=== PATIENT | male | born 1955 | race Caucasian/White ===

== ENCOUNTER 2020-06-28 15:30 | Emergency (ER) | payer MEDICARE, SELFPAY ==
[2020-06-28 15:32] VITALS: BP 135/80; PULSE 75; RESP 18; TEMP 35.8; O2SAT 97; BMI 28.8
--- NOTE | 2020-06-28 15:43 | ECG_ITS ---
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 Measurements Intervals [place] Rate: 74 P: 50 WI: 200 QRS: 26 QRSD: 77 T: 5 QT: 388 QTc: 432 Interpretive Statements SINUS RHYTHM WITH OCCASIONAL SUPRAVENTRICULAR PREMATURE COMPLEXES No previous ECG available for comparison Electronically Signed On 06-28-2020 18:51:17 CDT by Jonathan Novak M.D. [id number]
--- NOTE | 2020-06-28 15:43 | CT_ITS ---
WS: [id number] CT HEAD NONCONTRAST HISTORY: Symptoms of Acute Stroke TECHNIQUE: Contiguous axial imaging performed through the brain in 2.5 mm imaging. Bone and soft tiss ue windows. Sagittal and coronal reformats reviewed. All CT scans at [facility] use at ast one of these dose optimization techniques: automated exposure control; mA and/or kV adjustment pe r patient size (includes targeted exams where dose is matched to clinical indication); or iterative r econstruction. DLP: 797.96 mGy.cm COMPARISON: None available. No acute intracranial hemorrhage, midline shift or mass effect. Mild atrophy and chronic ischemic disease. No prior infarct. Ventricles: Normal size with no hydrocephalus. No inferior displacement of cerebellar tonsils. Paranasal sinuses: As visualized are clear. Mastoid air cells: Well pneumatized. Calvarium and scalp: Skull is intact with no soft tissue edema or swelling. CT/CT head wo con* [id number] IMPRESSION: No acute intracranial hemorrhage or edema. Mild chronic microvascular ischemic disease.
--- NOTE | 2020-06-28 15:43 | ED_ITS ---
HPI - Neuro Symptoms/Deficit General: Chief Complaint: Neuro Symptoms/Deficit Stated Complaint: headache;left arm numbness Time Seen by Provider: 06/28/20 15:33 History of Present Illness: HPI Narrative: 64-year-old male comes in with very vague complaints earlier today he had some left hand left arm and left side of his face numbness and tingling it resolved he also had a little bit of visual variation which she describes at times is almost like double vision that also has resolved he had a slight headache with that is well all of the symptoms have for the most part resolved today he has had recurrent vision problems in the past he seen the eye doctor for this been ongoing for a few months he denies any chest pain or shortness of breath. Denies any fever sweats or chills no nausea vomiting or diarrhea. He denies any vision problems now denies any speech or swallowing or gait problems now. Onset (ago): hour(s) Timing confirmed by: spouse Location: speech and left arm Severity: mild Quality: weak, numb and tingling Relieving factors: none Exacerbating factors: none Context: gradual onset On Anticoagulants: No Associated symptoms: Deny chest pain, cough, diaphoresis, fevers/chills, headache(s), anorexia, malaise, nausea, seizures, short of breath, syncope, tingling, vertigo, vomiting, weakness or other Treatments Prior to Arrival: none Review of Systems Const: Denies: malaise or diaphoresis ENMT: Denies: throat pain, ear or mastoid pain, nasal discharge or nasal congestion Card: Denies: chest pain or syncope Resp: Denies: dyspnea, productive cough or non-productive cough GI: Denies: nausea or vomiting : Denies: flank pain, dysuria, urinary frequency or urinary urgency Skin/Breast: Denies: rash or pruritus Neuro: Denies: headache(s) or vertigo NIH stroke score NIHSS: Level Of Consciousness - 1a: 0 Level Of Consciousness Questions - 1b: Both Correct Level Of Consciousness Commands - 1c: Both Correct Best Gaze - 2: Normal Visual Egan - 3: No Visual Loss Facial Palsy - 4: Iona l Motor Arm Right - 5: No Drift Motor Arm Left - 5: No Drift Motor Leg Right - 6: No Drift Motor Leg Left - 6: No Drift Limb Ataxia - 7: Absent Sensory - 8: Normal Best Language - 9: No Aphasia Dysarthia - 10: Normal Extinction And Inattention - 11: 0 Score: Total Score: 0 Physical Exam Const: COMMON NORMALS: no acute distress GENERAL APPEARANCE: cooperative and comfortable ORIENTATION/CONSCIOUSNESS: Yes awake, Yes oriented to person, Yes oriented to place and Yes oriented to time HENMT: COMMON NORMALS: normocephalic, atraumatic, hearing grossly normal bilaterally, external ears normal, EAC's normal, TM's normal bilaterally, Normal nasal mucous membranes and turbinates present, moist oral mucous membranes and oropharynx normal HEAD & SCALP: normocephalic and atraumatic NOSE: Normal nasal mucous membranes and turbinates present EXTERNAL EAR: Yes external ears normal EXTERNAL AUDITORY CANAL: EAC's normal TYMPANIC MEMBRANE: TM's normal bilaterally Eye: COMMON NORMALS: Equal, round and reactive pupils present, EOMs intact bilaterally, conjunctivae normal and no scleral icterus CONJUNCTIVA: Yes conjunctivae normal PUPIL: Yes Equal, round and reactive pupils present Neck/C-Spine: COMMON NORMALS: full ROM, no lymphadenopathy, supple and no JVD Lymph: LYMPHATIC: no lymphadenopathy noted and no lymphedema noted Resp: COMMON NORMALS: normal respiratory effort, No retractions, No use of accessory muscles and clear to auscultation bilaterally AUSCULTATION: clear to auscultation bilaterally Cardio: COMMON NORMALS: no JVD, regular rate, regular rhythm and No murmurs present (Cardio) RATE: regular rate RHYTHM: regular rhythm GI: COMMON NORMALS: Soft to palpation and No hepatosplenomegaly present AUSCULTATION: Yes normoactive bowel sounds PALPATION: Yes Soft to palpation, No Tenderness to palpation present (GI), No Guarding due to palpation present (GI) and Yes No hepatosplenomegaly present Extremity: COMMON NORMALS: normal to inspection, capillary refill normal, no clubbing, cyanosis or edema, no calf tenderness and no pedal edema Neuro: SENSORIUM/ORIENTATION: Yes oriented to person, Yes oriented to place and Yes oriented to time Skin: COMMON NORMALS: no rashes or lesions noted GENERAL SKIN EXAM: no rashes or lesions noted Course Vital Signs: Vital signs: Vital Signs Temperature 96.5 F L 06/28/20 15:32 Pulse Rate 60 06/28/20 17:00 Respiratory Rate 18 06/28/20 17:00 Blood Pressure 124/79 06/28/20 17:00 Pulse Oximetry 96 06/28/20 17:00 MDM - Neuro Symptoms/Deficit MDM Narrative: Medical decision making narrative: Patient has had symptoms off and on he has no symptoms at this time is not been using any platelet therapy. We will go ahead and start on aspirin daily. If has any worsening or change recheck. Lab Data: Labs: Lab Results 06/28/20 06/28/20 06/28/20 Range/Units 16:02 16:02 16:02 WBC 7.9 (4.0-10.0) 10^3/ uL RBC 4.46 (4.1-5.3) 10^6/u L Hgb 12.2 (11.7-16.6) g/dL Hct 39.2 L (42.0-52.0) % MCV 87.9 (80-94) fL MCH 27.4 L (28.0-34.0) pg MCHC 31.1 (30.0-36.0) g/dL RDW 15.9 H (12.1-15.1) % Plt Count 386 (130-400) 10^3/c mm MPV 9.1 (7.4-10.4) fL Neut % (Auto) 48.0 % Lymph % (Auto) 16.6 % [place] % (Auto) 7.4 % Eos % (Auto) 26.9 % Baso % (Auto) 0.8 % Neut # (Auto) 3.80 (1.8-7.7) 10^3/u L Lymph # (Auto) 1.3 (0.8-4.8) 10^3/u L [place] # (Auto) 0.6 (0.2-0.9) 10^3/u L Eos # (Auto) 2.1 H (0.0-0.8) 10^3/u L Baso # (Auto) 0.1 (0.0-0.1) 10^3/u L Nucleated RBC % (a uto) 0 % Nucleated RBCs # 0.0 /100WBC PT 12.50 (12.1-14.9) SECO NDS INR 0.91 (0.8-1.2) APTT 32.3 (23.9-36.7) SECO NDS Sodium 140 (136-145) mmol/L Potassium 4.5 (3.5-5.1) mmol/L Chloride 105 (98-107) mmol/L Carbon Dioxide 25 (22-29) mmol/L Anion Gap 14.5 (5-19) BUN 15 (8-23) mg/dL Creatinine 1.6 H (0.7-1.2) mg/dL GFR Calculation 43.5 L (90-130) mL/min Glucose 99 (65-115) mg/dL Calculated Osmolal ity 286 (285-295) mOsm/k g Calcium 9.3 (8.5-10.5) mg/dL Total Bilirubin 0.2 (0.15-1.2) mg/dL AST 13 (0-40) U/L ALT 9 (0-41) U/L Alkaline Phosphata se 112 (40-130) IU/L Total Protein 7.4 (6.6-8.7) g/dL Albumin 4.3 (3.5-5.2) g/dL Globulin 3.1 (1.3-4.6) g/dL Discharge Plan Discharge Patient Disposition: Home Clinical Impression: Transient cerebral ischemia Condition: Stable Prescriptions: New Aspirin Childrens 81 mg tablet,chewable 81 mg PO DAILY Qty: 90 RF: 0 No Action cyclobenzaprine 10 mg tablet 10 mg PO DAILY RF: 0 latanoprost 0.005 % drops See Rx Instructions .ROUTE .COMPLEX RF: 0 sertraline 100 mg tablet 150 mg PO DAILY RF: 0 desloratadine 5 mg tablet 5 mg PO DAILY RF: 0 erythromycin 5 mg/gram (0.5 %) ointment See Rx Instructions .ROUTE .COMPLEX RF: 0 Tylenol 325 mg Tablet 325 mg PO QID PRN (Reason: pain/fever) RF: 0 naproxen 375 mg Tablet 375 mg PO BID PRN (Reason: Pain) RF: 0 Mckenzie-Faith Plus Allergy 25 mg Tablet 25 mg PO Q6H PRN (Reason: Cold Symptoms) RF: 0 Discharge Orders: Discharge Order (Routine); Ordered 06/28/20 Ordered By: Jose Long Referrals: Lee Dorado [Primary Care Provider] - Activity Restrictions/Additional Instructions: Case management will call to set up MRI of the head carotid and echo to further evaluate. Continue to take baby aspirin daily until reviewed with your primary care physician. Discharge Date/Time: 06/28/20 17:00 Coding Level of Care Code ED Vp [employer] for Chg Fwd Exam Comprehensive
[2020-06-28 16:18] LABS: Basophils # 0.1 10^3/uL (0.0-0.1); Basophils % 0.8 %; Eosinophils # 2.1 10^3/uL (0.0-0.8); Eosinophils % 26.9 %; Hematocrit 39.2 % (42.0-52.0); Hemoglobin 12.2 g/dL (11.7-16.6); Lymphocytes # 1.3 10^3/uL (0.8-4.8); Lymphocytes % 16.6 %; Mean Corpuscular HGB Conc 31.1 g/dL (30.0-36.0); Mean Corpuscular Hemoglobin 27.4 pg (28.0-34.0); Mean Corpuscular Volume 87.9 fL (80-94); Mean Platelet Volume 9.1 fL (7.4-10.4); Monocytes # 0.6 10^3/uL (0.2-0.9); Monocytes % 7.4 %; Nucleated Red Blood Cells % 0 %; Platelet Count 386 10^3/cmm (130-400); Red Blood Count 4.46 10^6/uL (4.1-5.3); Red Cell Distribution Width 15.9 % (12.1-15.1); White Blood Count 7.9 10^3/uL (4.0-10.0)
[2020-06-28 16:31] LABS: INR 0.91 (0.8-1.2)
[2020-06-28 16:32] LABS: Partial Thromboplastin Time 32.3 SECONDS (23.9-36.7)
[2020-06-28 16:41] LABS: Alanine Aminotransferase 9 U/L (0-41); Albumin Level 4.3 g/dL (3.5-5.2); Alkaline Phosphatase 112 IU/L (40-130); Anion Gap 14.5 (5-19); Aspartate Amino Transferase 13 U/L (0-40); Blood Urea Nitrogen 15 mg/dL (8-23); Calcium 9.3 mg/dL (8.5-10.5); Carbon Dioxide 25 mmol/L (22-29); Chloride 105 mmol/L (98-107); Globulin 3.1 g/dL (1.3-4.6); Glomerular Filtration Rate 43.5 mL/min (90-130); Glucose 99 mg/dL (65-115); Osmolality Calculated 286 mOsm/kg (285-295); Potassium 4.5 mmol/L (3.5-5.1); Sodium 140 mmol/L (136-145); Total Bilirubin 0.2 mg/dL (0.15-1.2); Total Protein 7.4 g/dL (6.6-8.7)
[2020-06-28 17:00] VITALS: BP 124/79; PULSE 60; RESP 18; O2SAT 96
--- NOTE | 2020-06-30 13:18 | DCPLANNER ---
manager mall had message to schedule an out patient MRI, echocardiagram, carotid duplex for patient. manager mall faxed order to centralized scheduling. manager mall will call for appointment information.
--- NOTE | 2020-07-05 07:51 | DCPLANNER ---
Patient has an MRI, echo cardiogram and and carotid duplex scheduled for , July 20, 2020 starting at 12:45. Centralized scheduling will call patient with appointment information.
--- NOTE | 2020-07-28 10:59 | DCPLANNER ---
Patient did attend appointments scheduled for 07.20.20 for an MRI, Echo and carotid duplex - patient did attend all three appointments.
== END 2020-06-28 17:00 | disposition home or self-care (01) ==
PROVIDERS: Emergency Provider Family Medicine; PCP Family Medicine
DX: G45.9 Transient cerebral ischemic attack, unspecified (principal)
CPT/HCPCS: 12345; 36415; 70450; 80053; 85025; 85610; 85730; 93005; 99282; 99283

== ENCOUNTER 2020-07-20 12:28 | Outpatient (CLI) | payer MEDICARE, OTHER, SELFPAY ==
--- NOTE | 2020-07-20 12:41 | USCV_ITS ---
Marquis Landrum Age: 65 Gender: M : 1955 Exam Date: 07/20/2020 12:53 Ordering Phys: Jose Long DO Technologist: Bruna Andino Exam Location: [facility] [place] Indication: TIA LT SIDE Risk Factors: Unknown Previous Vascular Surgery: None Right Brachial BP: / Left Brachial BP: / Right Left Velocity (cm/s) Spectral Plaque Velocity (cm/s) Spectral Plaque Syst/Diast Broadening Syst/Diast Broadening 87.10/ 20.90 Prox CCA 98.30 / 22.20 71.50/ 21.00 Mid CCA 66.70 / 16.20 52.00/ 17.10 Distal CCA 97.40 / 17.90 61.40/ 21.80 Prox ICA 60.50 / 16.50 143.90/48.60 Mid ICA 60.50 / 18.30 122.30/46.80 Distal ICA 64.15 / 17.40 135.40 ECA 118.10 2.01 ICA/CCA 0.91 Antegrade Vertebral Antegrade 37.40/ 9.60 cm/s 43.70/ 12.60 cm/s Tri Subclavian Tri 103.4 92.50 0 FINDINGS Minimal plaques at the bifurcations and proximal renal carotid arteries bilaterally. Moderate heterogeneous plaques at the mid and distal internal carotid artery on the right side Intimal thickening and minimal plaque in the common carotid arteries bilaterally Antegrade flow seen in the vertebral arteries bilaterally CONCLUSIONS Moderate heterogeneous plaques at the right mid and distal internal carotid artery with velocity elevation, suggestive of hemodynamically significant stenosis. Minimal plaques at the bifurcations and proximal renal carotid arteries bilaterally Consider CTA, to better evaluate the distal internal carotid arteries No similar previous studies are available for comparison Dr Raymundo Goel MD [facility] (Electronically Signed) Final Date: 20 July 2020 19:54 S
--- NOTE | 2020-07-20 12:41 | USCV_ITS ---
Marquis Landrum Age: 65 Gender: M : 1955 Exam Date: 07/20/2020 13:12 Ordering Phys: Jose Long DO Technologist: Bruna Andino [place] [facility] [place] Indication: TIA BP: 134 / 72 HR: 71 Rhythm: Sinus Technical Quality: MEASUREMENTS (Male / Female) Normal Values 2D ECHO LV Diastolic Diameter PLAX 4.0 cm 4.2 - 5.9 / 3.9 - 5.3 cm LV Systolic Diameter PLAX 3.2 cm LV Chamber Size 3.5 cm IVS Diastolic Thickness 1.2 cm 0.6 - 1.0 / 0.6 - 0.9 cm IVS Systolic Thickness 1.7 cm LVPW Diastolic Thickness 1.2 cm 0.6 - 1.0 / 0.6 - 0.9 cm LVPW Systolic Thickness 1.8 cm RV Chamber Size 3.0 cm LVOT Diameter 2.0 cm LV Ejection Fraction 2D Teich 41.4 % LV Ejection Fraction MOD 2C 15.2 % LV Ejection Fraction 2C AL 12.8 % LA Diameter 4.5 cm LA Width 3.2 cm LA Height 3.6 cm RA Width 3.0 cm RA Height 3.0 cm Aorta at Sinotubular Diameter 3.4 cm M-MODE LV Diastolic Diameter MM 5.1 cm 4.2 - 5.9 / 3.9 - 5.3 cm LV Systolic Diameter MM 3.4 cm LV Ejection Fraction MM Teich 62.6 % IVS Diastolic Thickness MM 1.4 cm 0.6 - 1.0 / 0.6 - 0.9 cm IVS Systolic Thickness MM 2.0 cm LVPW Diastolic Thickness MM 1.4 cm 0.6 - 1.0 / 0.6 - 0.9 cm LVPW Systolic Thickness MM 1.7 cm RV Diastolic Diameter MM 1.5 cm Aortic Annulus Diameter 3.3 cm LA Ao Ratio MM 1.4 MV E Point Septal Separation 0.6 cm DOPPLER AV Peak Velocity 163.0 cm/s LVOT Peak Velocity 69.0 cm/s AV Area Cont Eq vti 1.3 cm squared AV Area Cont Eq pk 1.3 cm squared MV Area PHT 4.4 cm squared Mitral E to A Ratio 1.7 MV E' Velocity 89.0 cm/s Mitral E to LV E' Septal Ratio 8.6 TR Peak Velocity 214.0 cm/s TR Peak Gradient 18.3 mmHg TR Mean Velocity 176.3 cm/s TR Mean Gradient 13.0 mmHg TR Velocity Time Integral 72.0 cm Right Atrial Pressure 3.0 mmHg Pulmonary Artery Systolic Pressu 21.3 mmHg PV Peak Velocity 49.0 cm/s RV Acceleration Time 0.1 s RV Ejection Time 0.3 s RV AcT/ET 0.2 FINDINGS Left Ventricle Normal left ventricular size, systolic function and wall thickness, with no regional wall motion abnormalities. LVEF is 60 to 65%. Normal left ventricular wall thickness. Normal diastolic filling pattern. Right Ventricle The right ventricle is normal in size and function. Right Atrium The right atrium is normal in size. Left Atrium The left atrium is normal in size. Mitral Valve Structurally normal mitral valve without significant stenosis or prolapse. There is no mitral regurgitation. Aortic Valve Structurally normal aortic valve without significant sclerosis or stenosis. There is no aortic regurgitation. Tricuspid Valve Structurally normal tricuspid valve without significant stenosis or regurgitation. Insufficient TR jet to measure RVSP. Pulmonic Valve Structurally normal pulmonic valve without significant stenosis. There is no pulmonic regurgitation. Pericardium Normal pericardium without effusion. Aorta Normal ascending aorta dimension. CONCLUSIONS LV systolic function is normal with EF of 60 to 65%. Diastolic function is normal. Structurally normal mitral and aortic valves. Insufficient TR jet to measure RVSP. Juan Ramon Block MD (Electronically Signed) Final Date: 20 July 2020 16:36 S
--- NOTE | 2020-07-20 14:01 | MR_ITS ---
WS: [id number] MRI HEAD WITH CONTRAST TECHNIQUE: Sagittal T1, T2 axial, T2 axial FLAIR, axial susceptibility weighted imaging, axial diffus ion weighted images, and coronal T2 images were obtained. Pre and post-T1 axial and post T1 coronal i mages. ADC and FSPGR images. CLINICAL INFORMATION: TA COMPARISON: CT June 28, 2020 FINDINGS: No evidence of restricted diffusion to suggest acute ischemia. Ventricular system and basal cisterns are patent. Mild small vessel changes. Moderate parenchymal volume loss. Small vessel changes in the melva. Cavum septum pellucidum. Normal posterior fossa. Normal vascular flow voids at the skull base. No extra-axial fluid collection s. No evidence of mass or mass effect. No hemosiderin on susceptibly weighted images. Paranasal sinus es and mastoid air cells are well aerated. No abnormal intracranial enhancement. Normal optic chiasm and pituitary infundibulum. Normal dural ve nous sinuses. MR/MR head wo/w con [id number] IMPRESSION: 1. No evidence of restricted diffusion to suggest acute ischemia. 2. Mild small vessel changes with moderate parenchymal volume loss. 3. No abnormal gadolinium enhancement. 4. No acute intracranial findings.
== END 2020-07-20 12:29 | disposition home or self-care (01) ==
LOC: RAD 12:39
PROVIDERS: PCP Family Medicine; Visit Provider Family Medicine
DX: G45.9 Transient cerebral ischemic attack, unspecified (principal)
CPT/HCPCS: 70553; 93306; 93880

== ENCOUNTER 2020-08-25 08:48 | Outpatient (CLI) | payer MEDICARE, SELFPAY ==
--- NOTE | 2020-08-25 09:00 | CT_ITS ---
WS: [id number] Exam: CT angio neck [id number] Date/Time of Exam: 08/25/2020 9:13 AM Reason For Exam: Carotid Stenosis DLP: 1047.[address] scans at [facility] use at least one of these dose optimization techniques: automat ed exposure control; mA and/or kV adjustment per patient size (includes targeted exams where dose is matched to clinical indication); or iterative reconstruction. CT angiography of the neck is performed in axial plane with sagittal and coronal reformatted images. Intravenous contrast was administered. The right and left common and extracranial internal carotid arteries are widely patent. No critical s tenosis or occlusion. The bilateral vertebral arteries are patent as visualized. The great vessels ar e all patent at the level of the aortic arch. No sign of dissection. There was no evidence of neck mass or significant cervical lymphadenopathy. The airway is patent. No superior mediastinal mass or adenopathy. Visualized upper lung zones are clear. Mild degenerative richy nges of the cervical spine. CT/CT angio neck [id number] IMPRESSION: 1. The right and left common carotid arteries and the extracranial internal car otid arteries are widely patent without critical stenosis, occlusion or dissect ion. 2. No other significant finding in the neck.
[2020-08-25] MEDS: iohexol 350 mg/mL 100 mL Btl IV (09:54)
== END 2020-08-25 08:49 | disposition home or self-care (01) ==
LOC: RADWPI 08:51
PROVIDERS: PCP Family Medicine; Visit Provider Internal Medicine
DX: I65.23 Occlusion and stenosis of bilateral carotid arteries (principal)
CPT/HCPCS: 70498; Q9967

== ENCOUNTER 2021-07-24 13:16 | Outpatient (CLI) | payer MEDICARE, OTHER, SELFPAY ==
--- NOTE | 2021-07-24 13:21 | CT_ITS ---
WS: [id number] CTA HEAD AND NECK TECHNIQUE: Contrast enhanced CTA of the head and neck with coronal and sagittal reformatted images an d maximum intensity projection (MIP) images. NASCET criteria utilized. CLINICAL INFORMATION: HISTORY OF TIA, ABNORMAL CAROTID ARTERY DOPPLER COMPARISON: None. DLP: 2048.[address] scans at [facility] use at least one of these dose optimization techniques: automated e xposure control; mA and/or kV adjustment per patient size (includes targeted exams where dose is matc hed to clinical indication); or iterative reconstruction. FINDINGS: No evidence of intracranial hemorrhage or mass effect. Ventricular system and basal cistern s are patent. Mild small vessel changes. Mild parenchymal volume loss. No extra-axial fluid collectio ns. Incidental cavum septum pellucidum. Mastoid air cells well aerated. Mild mucosal thickening in th e paranasal sinuses. Lung apices are well aerated. RIGHT: Right common carotid artery is patent. Smooth tapered narrowing right proximal ICA with eccentric rig ht ICA narrowing due to soft plaque. Stenosis measures approximately 55% progressed compared to previ ous. Right ICA remains patent to the skull base. LEFT: Left common carotid artery is patent. No significant left ICA stenosis. Left ICA is patent to the sku ll base. INTRACRANIAL CTA: Left dominant vertebral artery. Smaller but patent right vertebral artery. Basilar artery is patent. Normal vascularity to the MEDICAL RESEARCH SCIENTIST territory bilaterally. Both ICAs are patent at the skull base. Normal vascularity to the RYAN and MCA territories bilaterally . No evidence of flow-limiting stenosis or aneurysm. Normal parapharyngeal fat. CT/CT angio headneck* [id number] IMPRESSION: 1. Eccentric proximal right ICA stenosis with tapered narrowing and soft plaqu e is progressed compared to previous with narrowing measuring approximately 55% worse at 1.5 cm distal to the bifurcation. 2. No significant left ICA stenosis. 3. Left dominant vertebral artery. Both vertebral arteries are patent. 4. Normal intracranial CTA. No flow-limiting stenosis or aneurysm. 5. No other significant findings.
[2021-07-24] MEDS: iodixanol 320 mg/mL 100mL Btl IV (13:57)
== END 2021-07-24 13:17 | disposition home or self-care (01) ==
PROVIDERS: PCP Nurse Practitioner Family; Visit Provider Nurse Practitioner Family
DX: Z86.73 Personal history of transient ischemic attack (TIA), and cerebral infarction without residual deficits (principal); R94.39 Abnormal result of other cardiovascular function study; I65.21 Occlusion and stenosis of right carotid artery
CPT/HCPCS: 70496; 70498; Q9967

== ENCOUNTER → 2021-07-30 07:59 | Outpatient (BNVA) | payer MEDICARE, OTHER, SELFPAY | PROVIDERS: PCP Nurse Practitioner Family; Visit Provider Nurse Practitioner | DX: I48.91 Unspecified atrial fibrillation (principal); E78.5 Hyperlipidemia, unspecified; R73.03 Prediabetes; R29.810 Facial weakness; Z79.01 Long term (current) use of anticoagulants; Z86.73 Personal history of transient ischemic attack (TIA), and cerebral infarction without residual deficits | CPT/HCPCS: 99204 ==

== ENCOUNTER 2021-08-10 10:39 | Outpatient (CLI) | payer MEDICARE, OTHER, SELFPAY ==
--- NOTE | 2021-08-10 11:00 | MR_ITS ---
WS: [id number] MRI BRAIN WITHOUT CONTRAST HISTORY: G45.9 - Transient cerebral ischemic attack, unspecified COMPARISON: 07/20/2020 TECHNIQUE: Diffusion imaging, multiplanar T1, T2 and FLAIR imaging obtained. No evidence for acute infarct or hemorrhage. Asif-white matter differentiation is normal. Mild Central ischemic changes in the melva are stable. There is additional subcortical white matter is chemic changes from small vessel disease. No prior infarct. Ventricles and extra-axial spaces are normal. Cavum septum pellucidum. No inferior displacement of cerebellar tonsils. The sella turcica and pituitary gland are unremarkabl e. Dural venous sinuses and [place] demonstrate no abnormality on this unenhanced studies. Paranasal sinuses: Clear. Mastoid air cells: Normal. Calvarium and scalp: Intact. MR/MR head wo con* [id number] IMPRESSION: 1. No acute infarct. 2. Mild stable small vessel ischemic change in the supratentorial white matter and melva. No interval change since 07/20/2020.
== END 2021-08-10 10:40 | disposition home or self-care (01) ==
PROVIDERS: PCP Nurse Practitioner Family; Visit Provider Nurse Practitioner
DX: G45.9 Transient cerebral ischemic attack, unspecified (principal)
CPT/HCPCS: 70551

== ENCOUNTER 2022-03-06 14:26 | Outpatient (CLI) | payer MEDICARE, OTHER, SELFPAY ==
--- NOTE | 2022-03-06 | USCV_ITS ---
Marquis Landrum Age: 66 Gender: M : 1955 Exam Date: 03/06/2022 15:48 Ordering Phys: Morro Contreras MD (Andy) [email or web address] [place] Technologist: Troy Angeles Exam Location: [facility] [place], [place] Indication: carotid stenosis Risk Factors: Previous Vascular Surgery: Right Brachial BP: / Left Brachial BP: / Right Left Velocity (cm/s) Spectral Plaque Velocity (cm/s) Spectral Plaque Syst/Diast Broadening Syst/Diast Broadening 88.20/ 26.50 Prox CCA 89.30 / 27.90 50.50/ 16.30 Mid CCA 93.70 / 19.60 72.20/ 23.30 Distal CCA 79.50 / 29.10 59.00/ 28.00 Prox ICA 61.50 / 17.90 250.10/113.30 Mid ICA 119.60/ 48.70 86.20/ 26.40 Distal ICA 92.30 / 36.70 140.00 ECA 184.00 4.95 ICA/CCA 1.28 Antegrade Vertebral Antegrade 72.20/ 14.80 cm/s 63.20/ 21.40 cm/s Tri Subclavian Tri 154.4 109.4 0 0 FINDINGS Comparison:. 07/20/20. Moderate to severe obstructive lesions noted in the right internal carotid artery estimated at 70-99% stenosis. Diastolic velocity greater then 100 cm/sec. Mild plaque otherwise bilaterally in the bifurcations. Left ICA stenosis minimal. Bilateral antegrade vertebral arteries. CONCLUSIONS Right ICA stenosis 70-99%. Significant progression since the prior study. Left ICA stenosis < 50%. Dr. Nancy Isidro DO (Electronically Signed) Final Date: 06 Mar 2022 16:44 S
== END 2022-03-06 14:27 | disposition home or self-care (01) ==
LOC: RAD 14:28
PROVIDERS: PCP Nurse Practitioner Family; Visit Provider Thoracic Surgery (Cardiothoracic Vascular Surgery)
DX: I65.23 Occlusion and stenosis of bilateral carotid arteries (principal)
CPT/HCPCS: 93880

== ENCOUNTER 2022-03-20 14:53 | Outpatient (CLI) | payer MEDICARE, OTHER, SELFPAY ==
--- NOTE | 2022-03-20 14:30 | CT_ITS ---
WS: [id number] CTA NECK TECHNIQUE: Contrast enhanced CTA of the neck with coronal and sagittal reformatted images and maximum intensity projection (MIP) images. NASCET criteria utilized. CLINICAL INFORMATION: carotid stenosis COMPARISON: CTA July 24, 2021 DLP: 318.[address] scans at [facility] use at least one of these dose optimization techniques: automated e xposure control; mA and/or kV adjustment per patient size (includes targeted exams where dose is matc hed to clinical indication); or iterative reconstruction. FINDINGS: Retropharyngeal course to both cervical ICAs LEFT greater than RIGHT. RIGHT: RIGHT proximal ICA stenosis measures approximately 60% today not significantly changed compare d to July 24, 2021. Stenosis is 1.5 cm distal to the bifurcation with tapered narrowing and nonc alcified eccentric plaque. RIGHT ICA remains patent to the skull base. LEFT: No significant LEFT ICA stenosis. LEFT ICA is patent to the skull base. LEFT dominant vertebral artery. Smaller but patent RIGHT vertebral artery. Basilar artery is patent. Normal vascularity to the SCHOOL [employer] ATTENDANT territory bilaterally. Both ICAs are patent at the skull base. Normal vascularity to the RYAN and MCA territories bilaterally . No evidence of high-grade proximal stenosis or aneurysm where visualized. Patent anterior communica ting artery. Mastoid air cells well aerated. Mild mucosal thickening in the paranasal sinuses. Proximal subclavian arteries are patent. Lung apices are well aerated. Normal submandibular glands. Normal parotid gland s. Normal posterior nasopharynx. Reversal of the normal cervical lordosis. Slight anterolisthesis C6 on C7. CT/CT angio neck [id number] IMPRESSION: 1. No significant change in the 60% RIGHT proximal ICA stenosis. ICA is patent to the skull base. 2. No significant LEFT ICA stenosis. 3. LEFT dominant vertebral artery. Both vertebral arteries are patent. 4. Proximal intracranial little [place] of [place] is normal. 5. No significant changes from previous.
[2022-03-20] MEDS: iodixanol 320 mg/mL 100mL Btl IV (15:45)
[2022-03-20 15:46] LABS: Blood Urea Nitrogen 17 mg/dL (8-23); Glomerular Filtration Rate 50.4 mL/min (90-130)
== END 2022-03-20 14:54 | disposition home or self-care (01) ==
LOC: RAD 14:58
PROVIDERS: PCP Nurse Practitioner Family; Visit Provider Thoracic Surgery (Cardiothoracic Vascular Surgery)
DX: I65.23 Occlusion and stenosis of bilateral carotid arteries (principal)
CPT/HCPCS: 70498; 82565; 84520

== ENCOUNTER → 2022-04-11 10:59 | Outpatient (BNVA) | payer MEDICARE, SELFPAY | PROVIDERS: PCP Nurse Practitioner Family; Visit Provider Thoracic Surgery (Cardiothoracic Vascular Surgery) | DX: I65.23 Occlusion and stenosis of bilateral carotid arteries (principal) | CPT/HCPCS: 99213 ==

== ENCOUNTER → 2022-05-15 13:49 | Outpatient (BNVA) | payer MEDICARE, SELFPAY | PROVIDERS: PCP Nurse Practitioner Family; Visit Provider Internal Medicine | DX: I48.91 Unspecified atrial fibrillation (principal); I10 Essential (primary) hypertension; I77.9 Disorder of arteries and arterioles, unspecified; Z86.73 Personal history of transient ischemic attack (TIA), and cerebral infarction without residual deficits | CPT/HCPCS: 99214 ==

== ENCOUNTER 2022-07-08 10:24 | Outpatient (CLI) | payer MEDICARE, SELFPAY ==
--- NOTE | 2022-07-08 10:15 | USCV_ITS ---
Marquis Landrum Age: 66 Gender: M : 1955 Exam Date: 07/08/2022 10:47 Ordering Phys: Juan Ramon Block M.D ([email or web address]) Technologist: JIMMY Exam Location: [facility] [place] Indication: SHORTNESS OF BREATH BP: 114 / 70 HR: 80 Rhythm: Atrial fibrillation Technical Quality: Adequate MEASUREMENTS (Male / Female) Normal Values 2D ECHO LV Diastolic Diameter PLAX 4.8 cm 4.2 - 5.9 / 3.9 - 5.3 cm LV Systolic Diameter PLAX 3.3 cm IVS Diastolic Thickness 1.7 cm 0.6 - 1.0 / 0.6 - 0.9 cm IVS Systolic Thickness 1.9 cm LVPW Diastolic Thickness 1.3 cm 0.6 - 1.0 / 0.6 - 0.9 cm LVPW Systolic Thickness 2.2 cm LVOT Diameter 2.0 cm LV Ejection Fraction 2D Teich 57.9 % LV Ejection Fraction MOD 2C 60.1 % LV Ejection Fraction 2C AL 62.4 % LA Diameter 3.5 cm LA Width 3.8 cm LA Height 5.1 cm RA Width 3.6 cm RA Height 3.8 cm Aorta at Sinotubular Diameter 2.3 cm M-MODE Aortic Annulus Diameter 3.0 cm LA Ao Ratio MM 1.1 MV E Point Septal Separation 1.1 cm DOPPLER AV Peak Velocity 191.0 cm/s LVOT Peak Velocity 93.0 cm/s AV Area Cont Eq vti 1.8 cm squared AV Area Cont Eq pk 1.5 cm squared MV Peak Velocity 74.0 cm/s MV Area PHT 3.3 cm squared MV E' Velocity 53.0 cm/s Mitral E to MV E' Ratio 7.8 Mitral E to LV E' Lateral Ratio 7.3 Mitral E to LV E' Septal Ratio 8.4 TR Peak Velocity 177.1 cm/s TR Peak Gradient 12.5 mmHg TR Mean Velocity 143.2 cm/s TR Mean Gradient 8.4 mmHg TR Velocity Time Integral 43.5 cm TV Peak E Velocity 34.0 cm/s Right Atrial Pressure 3.0 mmHg Pulmonary Artery Systolic Pressu 15.5 mmHg PV Peak Velocity 89.0 cm/s RV Acceleration Time 0.1 s RV Ejection Time 0.3 s RV AcT/ET 0.4 FINDINGS Left Ventricle Left ventricle is normal in size. LV systolic function is normal with EF of 55-60%. No regional wall motion abnormalities. Right Ventricle RV is normal in size and function Right Atrium RA is normal in size Left Atrium Left atrium is normal in size Mitral Valve Structurally normal mitral valve.Trace mitral regurgitation. Aortic Valve Aortic valve is structurally normal. No significant stenosis or regurgitation. Tricuspid Valve Grossly normal tricuspid valve. Trace tricuspid regurgitation. Normal pulmonary artery systolic pressure Pulmonic Valve Not well visualized Pericardium Normal Aorta Normal in size IVC CONCLUSIONS LV systolic function is normal with EF of 55-60% Trace mitral regurgitation Trace tricuspid regurgitation Compared to prior echocardiogram from 06/2020, no significant changes are seen Juan Ramon Block MD (Electronically Signed) Final Date: 20 July 2022 21:29 S
== END 2022-07-08 10:25 | disposition home or self-care (01) ==
LOC: RAD 10:24
PROVIDERS: PCP Nurse Practitioner Family; Visit Provider Internal Medicine
DX: I08.1 Rheumatic disorders of both mitral and tricuspid valves (principal); R06.02 Shortness of breath
CPT/HCPCS: 93306

== ENCOUNTER → 2022-09-23 08:41 | Outpatient (BNVA) | payer MEDICARE, SELFPAY | PROVIDERS: PCP Nurse Practitioner Family; Referring Provider Nurse Practitioner Family; Visit Provider Specialist | DX: R20.2 Paresthesia of skin (principal); I48.91 Unspecified atrial fibrillation; I69.398 Other sequelae of cerebral infarction; I10 Essential (primary) hypertension; I65.21 Occlusion and stenosis of right carotid artery; Z79.01 Long term (current) use of anticoagulants; R51.9 Headache, unspecified; F32.A Depression, unspecified | CPT/HCPCS: 99215 ==

== ENCOUNTER → 2022-11-27 11:06 | Outpatient (BNVA) | payer MEDICARE, SELFPAY | PROVIDERS: PCP Nurse Practitioner Family; Visit Provider Specialist | DX: R20.0 Anesthesia of skin (principal); R20.2 Paresthesia of skin; G50.0 Trigeminal neuralgia; I48.91 Unspecified atrial fibrillation; I77.9 Disorder of arteries and arterioles, unspecified; Z79.01 Long term (current) use of anticoagulants; G43.109 Migraine with aura, not intractable, without status migrainosus | CPT/HCPCS: 36415; 85025; 85651; 86140; 99214 ==

== ENCOUNTER 2022-11-28 09:56 | Outpatient (CLI) | payer MEDICARE, SELFPAY ==
--- NOTE | 2022-11-28 11:00 | USCV_ITS ---
Marquis Landrum Age: 67 Gender: M : 1955 Exam Date: 11/28/2022 11:00 Ordering Phys: Morro Contreras MD (Andy) ([email or web address] [place]) Technologist: Troy Angeles [place] [facility] [place] Indication: carotid stenosis Risk Factors: Previous Vascular Surgery: Right Brachial BP: / Left Brachial BP: / Right Left Velocity (cm/s) Spectral Plaque Velocity (cm/s) Spectral Plaque Syst/Diast Broadening Syst/Diast Broadening 57.50/ 13.20 Prox CCA 68.50 / 22.80 38.00/ 7.70 Mid CCA 84.10 / 27.60 59.00/ 16.20 Distal CCA 69.20 / 17.90 164.30/63.10 Prox ICA 51.30 / 19.40 307.60/119.60 Mid ICA 100.20/ 39.60 112.30/36.60 Distal ICA 61.40 / 24.90 114.70 ECA 126.80 8.09 ICA/CCA 1.19 Antegrade Vertebral Antegrade 37.30/ 10.10 cm/s 57.50/ 22.50 cm/s Tri Subclavian Tri 152.3 87.20 0 FINDINGS Comparison:. 03/06/22. Very high grade right ICA stenosis, systolic and diastolic marked elevation in velocity. Progression since the prior exam. Bilateral plaque in the carotid arteries. antegrade vertebral arteries. CONCLUSIONS Right ICA stenosis 70-99%. Progression since the prior exam. Left ICA stenosis < 50%. Dr. Nancy Isidro DO (Electronically Signed) Final Date: 28 November 2022 11:22 S
== END 2022-11-28 09:57 | disposition home or self-care (01) ==
LOC: RAD 10:00
PROVIDERS: PCP Nurse Practitioner Family; Visit Provider Thoracic Surgery (Cardiothoracic Vascular Surgery)
DX: G45.9 Transient cerebral ischemic attack, unspecified (principal)
CPT/HCPCS: 93880

== ENCOUNTER → 2023-01-09 07:55 | Outpatient (BNVA) | payer MEDICARE, SELFPAY | PROVIDERS: PCP Nurse Practitioner Family; Visit Provider Thoracic Surgery (Cardiothoracic Vascular Surgery) | DX: I65.21 Occlusion and stenosis of right carotid artery (principal); Z79.01 Long term (current) use of anticoagulants | CPT/HCPCS: 99213 ==

== ENCOUNTER 2023-02-04 12:26 | Outpatient (CLI) | payer MEDICARE, SELFPAY ==
--- NOTE | 2023-02-04 12:30 | CT_ITS ---
WS: [id number] CTA NECK TECHNIQUE: Contrast enhanced CTA of the neck with coronal and sagittal reformatted images and maximum intensity projection (MIP) images. NASCET criteria utilized. CLINICAL INFORMATION: Carotid stenosis COMPARISON: March 20, 2022 DLP: 222.[address] scans at [facility] use at least one of these dose optimization techniques: automated e xposure control; mA and/or kV adjustment per patient size (includes targeted exams where dose is matc hed to clinical indication); or iterative reconstruction. FINDINGS: RIGHT: RIGHT common carotid artery is patent. Stenosis RIGHT proximal ICA appears progressed compared to previous with tiny residual lumen. ICA remains patent to the skull base. ICA stenosis measures ap proximately 70% today. Tiny residual lumen measures 1.6 mm. LEFT: LEFT common carotid artery is patent. No significant LEFT ICA stenosis. ICA is patent to the sk ull base. Slight retropharyngeal course of the LEFT cervical ICA. LEFT dominant vertebral artery. Smaller but patent RIGHT vertebral artery. Vertebral arteries are pat ent to the basilar junction. Mastoid air cells are well aerated. Paranasal sinuses are well aerated. Mild polypoid mucosal thicken ing in the maxillary sinuses. Normal posterior nasopharynx. Enhancing RIGHT thyroid nodule measuring 9 mm appears stable compared to previous. Lung apices are well aerated. Mild spondylitic changes cervical spine with grade 1 anterolisthesis C6 on C7. This is unchanged. CT/CT angio neck [id number] IMPRESSION: 1. RIGHT ICA stenosis slightly progressed compared to previous with tiny resid ual lumen measuring 1.6 mm. Stenosis measures approximately 70% today. RIGHT IC A remains patent to the skull base. 2. No significant LEFT ICA stenosis. 3. LEFT dominant vertebral artery. Both vertebral arteries are patent. 4. No other significant interval changes
[2023-02-04 12:54] LABS: Blood Urea Nitrogen 15 mg/dL (8-23); Glomerular Filtration Rate 46.4 mL/min (90-130)
[2023-02-04] MEDS: iohexol 350 mg/mL 500 mL Btl (per mL) IV (13:04)
== END 2023-02-04 12:27 | disposition home or self-care (01) ==
LOC: RAD 12:28
PROVIDERS: PCP Nurse Practitioner Family; Visit Provider Thoracic Surgery (Cardiothoracic Vascular Surgery)
DX: I65.23 Occlusion and stenosis of bilateral carotid arteries (principal)
CPT/HCPCS: 70498; 82565; 84520; Q9967

== ENCOUNTER 2023-02-06 | Outpatient (CLI) | payer MEDICARE, SELFPAY | END 2023-02-06 23:00 | disposition home or self-care (01) | LOC: RAD 03-03 12:19 | PROVIDERS: PCP Nurse Practitioner Family; Visit Provider Thoracic Surgery (Cardiothoracic Vascular Surgery) | DX: I65.21 Occlusion and stenosis of right carotid artery (principal); Z79.01 Long term (current) use of anticoagulants | CPT/HCPCS: 99213 ==

== ENCOUNTER → 2023-04-28 15:18 | Outpatient (BNVA) | payer MEDICARE, SELFPAY | PROVIDERS: PCP Nurse Practitioner Family; Visit Provider Internal Medicine | DX: I48.91 Unspecified atrial fibrillation (principal); I10 Essential (primary) hypertension; I77.9 Disorder of arteries and arterioles, unspecified; Z86.73 Personal history of transient ischemic attack (TIA), and cerebral infarction without residual deficits; Z79.01 Long term (current) use of anticoagulants | CPT/HCPCS: 99214 ==

== ENCOUNTER 2023-05-19 07:11 | Outpatient (CLI) | payer MEDICARE, SELFPAY ==
--- NOTE | 2023-05-19 | ECG_ITS ---
[facility] Test Date: 2023-05-19 Pat Name: Marquis Landrum Department: Room: Gender: Male Literacy Coach: : 1955 Requested By: Juan Ramon Block Order Number: [id number] Trevor MD: Juan Ramon Block M.D. Interpretive Statements NAME OF STUDY: LEXISCAN SESTAMIBI STRESS TEST INDICATION: [Dyspnea on Exertion] Procedure: At the baseline, the blood pressure was 133/79 mmHg with a heart rate of 76 bpm. The electrocardiogram showed normal sinus rhythm, normal axis, normal ST-T segments and PACs The Lexiscan was infused over a period of 20 seconds. A total of 0.4 mg of Lexiscan was infused. The stress phase was continued for a total of 5 minutes. Heart rate was at the end of stress phase was 84 bpm and a blood pressure of 120/74 mmHg. The EKG at the peak infusion revealed normal sinus rhythm with no significant ST-T wave changes. Sestamibi was injected 20 seconds after the Lexiscan infusion. Blood pressure at the end of recovery phase was 120/76 mmHg with a heart rate of 84 bpm. Conclusion: 1. Normal EKG response to Lexiscan infusion 2. No Lexiscan induced chest pain or cardiac arrhythmia. 3. Normal blood pressure and heart rate response. 4. Sestamibi/sestamibi perfusion scan pending; see separate report. Electronically Signed On 05-19-2023 12:19:00 CDT by Juan Ramon Block M.D. [email or web address]
[2023-05-19 07:30] VITALS: BMI 29.5
--- NOTE | 2023-05-19 07:33 | NMCV_ITS ---
NM tray perf SPECT r/s* [id number] Marquis Landrum Age: 67 Gender: M : 1955 Exam Date: 05/19/2023 08:26 Ordering Phys: Juan Ramon Block M.D ([email or web address]) Technologist: JANETH Gutierrez Exam Location: [facility] Indications: SHORTNESS OF BREATH, A FIB STRESS TEST Please see separate stress test report in [facility] for full findings IMAGE PROTOCOL Rest/Stress 1 Lexiscan Day Radiopharmaceutical Dose (mCi) Administration Site Administered by Rest: Tc-99m 10.6 IV JANETH Watkins Sestamibi Stress:Tc-99m 32.8 IV JANETH Watkins Sestamibi Rest: 19-May-2023 60 Discovery 630 Stress: 19-May-2023 30 Discovery 630 0.4mg Lexiscan. Images obtained in supine and prone position. SPECT RESULTS Technical Quality: Excellent Raw Data Analysis: Normal Image Corrections: No attenuation or motion correction applied Summed Stress Score: 0 Summed Rest Score: 0 Summed Difference Score: 0 PERFUSION FINDINGS SPECT images demonstrate homogeneous tracer distribution throughout the myocardium. FUNCTIONAL RESULTS (calculated via Gated SPECT) Stress Image LV EF (%): 70 Stress EDV (mL):84 TID: 0.96 Stress ESV (mL):25 FUNCTIONAL FINDINGS: There is normal left ventricular systolic function. IMPRESSIONS 1. Normal myocardial perfusion imaging with no evidence of ischemia 2. LV systolic function is normal. Juan Ramon Block MD (Electronically Signed) Final Date: 19 May 2023 12:05 S
[2023-05-19] MEDS: regadenoson 0.4 Mg/5 ml Syringe IVP (09:18)
[2023-05-19 09:43] VITALS: BP 126/54; PULSE 62
== END 2023-05-19 07:12 | disposition home or self-care (01) ==
LOC: CDL 07:14
PROVIDERS: PCP Nurse Practitioner Family; Visit Provider Internal Medicine
DX: R06.09 Other forms of dyspnea (principal); R06.02 Shortness of breath; I48.91 Unspecified atrial fibrillation
CPT/HCPCS: 36415; 78452; 93017; 96374; A9500; J2785

== ENCOUNTER → 2023-10-03 10:30 | Outpatient (BNVA) | payer MEDICARE, OTHER, SELFPAY | PROVIDERS: PCP Nurse Practitioner Family; Visit Provider Nurse Practitioner Family | DX: R07.9 Chest pain, unspecified (principal) | CPT/HCPCS: 93005; 99213 ==

== ENCOUNTER → 2024-02-04 13:06 | Outpatient (BNVA) | payer MEDICARE, OTHER, SELFPAY | PROVIDERS: PCP Nurse Practitioner Family; Visit Provider Internal Medicine | DX: I48.91 Unspecified atrial fibrillation (principal); I10 Essential (primary) hypertension; I77.9 Disorder of arteries and arterioles, unspecified; Z79.01 Long term (current) use of anticoagulants | CPT/HCPCS: 99214 ==

== ENCOUNTER → 2024-09-27 15:56 | Outpatient (BNVA) | payer MEDICARE, OTHER, SELFPAY | PROVIDERS: PCP Nurse Practitioner Family; Visit Provider Internal Medicine | DX: I48.91 Unspecified atrial fibrillation (principal); I10 Essential (primary) hypertension; G45.9 Transient cerebral ischemic attack, unspecified; I77.9 Disorder of arteries and arterioles, unspecified; Z87.891 Personal history of nicotine dependence | CPT/HCPCS: 99214 ==

== ENCOUNTER → 2025-04-04 15:10 | Outpatient (BNVA) | payer MEDICARE, OTHER, SELFPAY | PROVIDERS: PCP Nurse Practitioner Family; Visit Provider Internal Medicine | DX: I77.9 Disorder of arteries and arterioles, unspecified (principal); I48.91 Unspecified atrial fibrillation; Z79.01 Long term (current) use of anticoagulants; Z79.82 Long term (current) use of aspirin; I10 Essential (primary) hypertension; Z86.73 Personal history of transient ischemic attack (TIA), and cerebral infarction without residual deficits; Z87.891 Personal history of nicotine dependence; R06.02 Shortness of breath | CPT/HCPCS: 99213 ==

== ENCOUNTER 2025-05-24 11:04 | Outpatient (CLI) | payer MEDICARE, OTHER, SELFPAY ==
--- NOTE | 2025-05-24 11:15 | USCV_ITS ---
Landrum Marquis Age: 69 Gender: M : 1955 Exam Date: 05/24/2025 11:29 Ordering Phys: Juan Ramon Block M.D ([email or web address]) Technologist: Exam Location: [facility] [place] Indication: cp sob BP: 130 / 80 HR: 70 Rhythm: Sinus Technical Quality: Adequate MEASUREMENTS (Male / Female) Normal Values 2D ECHO LV Diastolic Diameter PLAX 3.6 cm 4.2 - 5.9 / 3.9 - 5.3 cm IVS Diastolic Thickness 1.0 cm 0.6 - 1.0 / 0.6 - 0.9 cm IVS Systolic Thickness 1.5 cm LVPW Diastolic Thickness 1.1 cm 0.6 - 1.0 / 0.6 - 0.9 cm LVPW Systolic Thickness 1.7 cm LVOT Diameter 2.0 cm LV Ejection Fraction 2D Teich 66.7 % LV Ejection Fraction MOD 4C 59.7 % LV Ejection Fraction MOD 2C 54.6 % LV Ejection Fraction 2C AL 55.0 % LA Diameter 3.0 cm RA Systolic Volume 4C AL 27.1 ml RA Systolic Volume 4C MOD 27.0 ml Aorta at Sinotubular Diameter 2.9 cm IVC Diameter 1.6 cm M-MODE LA Ao Ratio MM 1.2 AV Cusp Separation MM 2.1 cm DOPPLER AV Peak Velocity 167.0 cm/s LVOT Peak Velocity 114.0 cm/s AV Area Cont Eq vti 2.6 cm squared AV Area Cont Eq pk 2.2 cm squared MV Peak Velocity 87.0 cm/s MV Area PHT 3.4 cm squared Mitral E to A Ratio 1.0 TV Peak Velocity 244.5 cm/s TR Peak Velocity 250.0 cm/s TR Peak Gradient 25.0 mmHg TV Peak E Velocity 123.0 cm/s PV Peak Velocity 95.0 cm/s FINDINGS Left Ventricle Normal left ventricular size, systolic function and wall thickness, with no regional wall motion abnormalities. Left ventricular ejection fraction is estimated at 55-60 %. Grade I/IV diastolic dysfunction (abnormal relaxation filling pattern), normal to mildly elevated filling pressures. Right Ventricle The right ventricle is normal in size and function. Right Atrium The right atrium is normal in size. Left Atrium The left atrium is normal in size. Mitral Valve Thickened mitral valve. No mitral valve stenosis. Mild mitral valve regurgitation. Aortic Valve Moderate aortic valve calcification. No aortic valve stenosis. Trace aortic valve regurgitation. Tricuspid Valve Mild tricuspid valve regurgitation. Pulmonic Valve Structurally normal pulmonic valve without significant stenosis. There is no pulmonic regurgitation. Pericardium Normal pericardium without effusion. Aorta Normal ascending aorta dimension. IVC The inferior vena cava appears normal. CONCLUSIONS Normal left ventricular size, systolic function and wall thickness, with no regional wall motion abnormalities. Left ventricular ejection fraction is estimated at 55-60 %. Grade I/IV diastolic dysfunction (abnormal relaxation filling pattern), normal to mildly elevated filling pressures. Moderate aortic valve calcification. No aortic valve stenosis. Trace aortic valve regurgitation. Thickened mitral valve. No mitral valve stenosis. Mild mitral valve regurgitation. Mild tricuspid valve regurgitation. There is no pericardial effusion. Right atrial pressure is around 5 mm of mercury. Jonathan Novak MD (Electronically Signed) Final Date: 25 May 2025 13:32 S
== END 2025-05-24 11:05 | disposition home or self-care (01) ==
LOC: RAD 11:05
PROVIDERS: PCP Nurse Practitioner Family; Visit Provider Internal Medicine
DX: R06.02 Shortness of breath (principal); I51.89 Other ill-defined heart diseases; I34.0 Nonrheumatic mitral (valve) insufficiency; I35.8 Other nonrheumatic aortic valve disorders; I36.1 Nonrheumatic tricuspid (valve) insufficiency
CPT/HCPCS: 93306

== ENCOUNTER 2025-07-20 11:29 | Emergency (ER) | payer MEDICARE, OTHER, SELFPAY ==
[2025-07-20 11:32] VITALS: BP 145/85; PULSE 57; TEMP 36.3; O2SAT 99
--- OUTSIDE RECORDS SUMMARY | 2025-07-20 11:34 | XMS_ITS | Clinical Summary ---
Author Organization [facility] Address [address] [place] [address] Phone Care Team Providers Care Kitchen Worker Name Role Phone EstradaSylvia alvarez Mildred [facility] Primary Care Provider [phone] Allergies Active Allergy Reactions Criticality Noted Date Comments Amoxicillin-Pot Clavulanate Other (See Comments) 08/29/2016 Bad liver reaction Peanut Other (See Comments) 08/29/2016 Gout Medications acetaminophen (TYLENOL) 500 mg tablet Take 1,000 mg by mouth every 6 hours as needed. Active Active Problems Problem Noted Date Diagnosed Date Jaundice, unspecified, not of 08/13/2012 Family History Medical History Relation Name Comments Colon Cancer Father Heart Disease Father Diabetes Maternal Grandmother Cancer Mother hx of skin ca Cancer Sister leukemia Relation Name Status Comments Father Maternal Grandmother Mother Sister Social History Tobacco Use Types Packs/Day Years Used Date Smoking Tobacco: Former Smokeless Tobacco: Never Alcohol Use Standard Drinks/Week Comments No 0 (1 standard drink = 0.6 oz pur e alcohol) Sex and Gender Information Value Date Recorded Sex Assigned at Not on file 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 Gender Identity Not on file Sexual Orientation Not on file Occupation Industry Job Start Date Job End Date Not on file Not on file Not on file Not on file Last Filed Vital Signs Vital Sign Reading Time Taken Comments Blood Pressure 129/79 08/29/2016 5:19 PM CDT Pulse 83 08/13/2012 1:03 PM CDT Temperature 36.8 C (98.3 F) 08/29/2016 5:19 PM CDT Respiratory Rate 20 08/29/2016 5:19 PM CDT Oxygen Saturation 98% 08/29/2016 5:19 PM CDT Inhaled Oxygen Concentration - - Weight 88.2 kg (194 lb 6.4 oz) 08/29/2016 2:18 P M CDT Height 175.3 cm (5' 9 ) 08/29/2016 2:18 PM CDT Body Mass Index 28.71 08/29/2016 2:18 PM CDT Plan of Treatment Health Maintenance Due Date Last Done Comments DTAP/TDAP/TD VACCINES (1 - Tdap) 1972 COLORECTAL SCREENING 1998 Colorectal Cancer Screening 1998 FIT-DNA Q 3 years 1998 FIT/FOBT Q 1 year 1998 Flex Sig/CT Colonography Q 5 years 1998 PNEUMOCOCCAL VACCINE 50+ YEARS (1 of 1 - PCV) 07/12/20 03 ZOSTER VACCINE (1 of 2) 2003 INFLUENZA VACCINE (#1) 2025 RSV VACCINE (60+ or ) (1 - 1-dose 75+ series) 2028 Care Teams Kitchen Worker Relationship Specialty Start Date End Date Sylvia Estrada FNP [address] [place] [address] PCP - General NURSE PRACTITIONER 08/29/16
--- OUTSIDE RECORDS SUMMARY | 2025-07-20 11:34 | XMS_ITS | Encounter Summary ---
Author Organization [facility] Address [address] [place] [address] Care Team Providers Care Robotics Specialist Name Role Phone Sylvia Estrada Primary Care Provider [phone] Reason for Referral * Outpatient Services (Routine) - Closed Specialty Diagnoses / Procedures Referred By Rika reyes Referred To Contact Diagnoses Abdominal tenderness, right upper quadrant Jaundice, unspecified, not of Other malaise and fatigue Anorexia Biliuria Procedures CT ABDOMEN W CONTRAST Cassi Sanders FNP [address] [place] [address] Phone: tel: fax: Referral ID Status Reason Start Date Expiration Date Visits Re quested Visits Authorized [id number] Closed 08/11/2012 08/11/2013 1 1 Encounter Details Date Type Department Care Team (Late st Contact Info) Description 08/11/2012 Ancillary Orders [facility] CT Scan [place] [address] [place] [id number] Cassi Sanders FNP [address] [place], [place] [address] Abdominal tenderness, right upper quadrant; Jaundice, unspecified, not of ; Other malaise and fatigue; Anorexia; Biliuria Social History Tobacco Use Types Packs/Day Years Used Date Smoking Tobacco: Never Assessed Sex and Gender Information Value Date Recorded Sex Assigned at Not on file 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 Gender Identity Not on file Sexual Orientation Not on file documented as of this encounter Plan of Treatment Not on file documented as of this encounter Results * CT ABDOMEN W CONTRAST (08/12/2012 9:05 AM CDT) Anatomical Region Laterality Modality Abdomen Computed Tomogra phy 08/12/2012 8:09 AM CDT Narrative 08/12/2012 9:[address] ABDOMEN, IV contrast enhanced 12 August 2012 TECHNIQUE After oral administration of contrast material and injection of 100 mL Optiray-320 nonionic contrast material intravenously, helical axial CT was obtained from the lung bases into the pelvis and imaged at 5 mm increments for 74 axial images. Sagittal and coronal reconstructions are also obtained. DESCRIPTION There is no intrahepatic duct dilatation and common bile duct appears normal in caliber. No abnormality of the pancreas is identified. The gallbladder is nondistended. No calculi are seen. There is some enhancement of the gallbladder wall noted, although this is a nonspecific finding. Follow-up regarding possible acute cholecystitis is suggested however. Spleen, nondistended stomach, adrenal glands, kidneys, partially visualized small bowel and colon appear unremarkable. There is minimal dependent congestion in the lung bases. Heart size appears normal and no pleural effusion is seen. No retroperitoneal adenopathy is seen. The abdominal wall appears intact. IMPRESSION 1. rule out acute cholecystitis 2. no biliary duct dilatation seen at this time COMMENT: report phoned to Dr. David at approximately 0930 hours 12 August 2012 Procedure Note Marc Kemp MD - 08/12/[address] ABDOMEN, IV contrast enhanced 12 August 2012 TECHNIQUE After oral administration of contrast material and injection of 100 mL Optiray-320 nonionic contrast material intravenously, helical axial CT was obtained from the lung bases into the pelvis and imaged at 5 mm increments for 74 axial images. Sagittal and coronal reconstructions are also obtained. DESCRIPTION There is no intrahepatic duct dilatation and common bile duct appears normal in caliber. No abnormality of the pancreas is identified. The gallbladder is nondistended. No calculi are seen. There is some enhancement of the gallbladder wall noted, although this is a nonspecific finding. Follow-up regarding possible acute cholecystitis is suggested however. Spleen, nondistended stomach, adrenal glands, kidneys, partially visualized small bowel and colon appear unremarkable. There is minimal dependent congestion in the lung bases. Heart size appears normal and no pleural effusion is seen. No retroperitoneal adenopathy is seen. The abdominal wall appears intact. IMPRESSION 1. rule out acute cholecystitis 2. no biliary duct dilatation seen at this time COMMENT: report phoned to Dr. David at approximately 0930 hours 12 August 2012 Cassi Betancuranjel Hernandez [facility] CT ORDERABLES Final Result documented in this encounter Visit Diagnoses Diagnosis Abdominal tenderness, right upper quadrant Jaundice, unspecified, not of Other malaise and fatigue Anorexia Biliuria Abdominal tenderness, right upper quadrant Jaundice, unspecified, not of Other malaise and fatigue Anorexia Biliuria documented in this encounter Care Teams Robotics Specialist Relationship Specialty Start Date End Date Sylvia Estrada FNP [address] [place] [address] PCP - General NURSE PRACTITIONER 08/29/16 documented as of this encounter
--- OUTSIDE RECORDS SUMMARY | 2025-07-20 11:34 | XMS_ITS | Clinical Summary ---
Author Organization [facility] Address [address] Attn: Epic Prelude [place] [address] Care Team Providers Care Machine Zipper Trimmer Name Role Phone Sylvia Estrada HOUSEKEEPING/LAUNDRY Primary Care Provider [phone] Allergies Active Allergy Reactions Criticality Noted Date Comments Amoxicillin-Pot Clavulanate Other (See Comments) 08/29/2016 Bad liver reaction Peanut Other (See Comments) 08/29/2016 Gout Medications apixaban (ELIQUIS) 2.5 mg tablet Take 2.5 mg by mouth 2 times daily. Active metFORMIN (GLUCOPHAGE) 500 mg tablet Take 500 mg by mouth 2 times daily with meals. Active atorvastatin (LIPITOR) 40 mg tablet Take 40 mg by mouth daily. Active sertraline (ZOLOFT) 25 mg tablet Take 25 mg by mouth daily. Active sertraline (ZOLOFT) 100 mg tablet Take 100 mg by mouth daily. Active predniSONE (DELTASONE) 20 mg tablet Take 2 tabs daily for 5 days with breakfast, then 1 tab daily for 3 days with breakfast, then 1/2 tab daily for 2 days. Continue the steroid taper even after symptom resolution to avoid recurrence of gout flare. 14 Tablet 1 Active acetaminophen (TYLENOL) 500 mg tablet Take 1,000 mg by mouth every 6 hours as needed. 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 Gender Identity Not on file Sexual Orientation Not on file Last Filed Vital Signs Vital Sign Reading Time Taken Comments Blood Pressure 131/80 09/28/2021 12:00 PM PROGRAM ENGINEER Pulse 107 09/28/2021 10:21 AM PROGRAM ENGINEER Temperature 36.3 C (97.4 F) 09/28/2021 12:00 PM PROGRAM ENGINEER Respiratory Rate 20 09/28/2021 12:00 PM PROGRAM ENGINEER Oxygen Saturation 98% 09/28/2021 12:00 PM PROGRAM ENGINEER Inhaled Oxygen Concentration - - Weight 90.3 kg (199 lb) 09/28/2021 10:19 AM PROGRAM ENGINEER Height 175.3 cm (5' 9 ) 09/28/2021 10:19 AM PROGRAM ENGINEER Body Mass Index 29.39 09/28/2021 10:19 AM PROGRAM ENGINEER Plan of Treatment Health Maintenance Due Date [...] ) (1 - 1-dose 75+ series) 2028 Insurance MEDICARE PART A AND B Care Teams Machine Zipper Trimmer Relationship Specialty Start Date End Date Sylvia Estrada FNP [address] [place] [address] PCP - General NURSE PRACTITIONER 08/29/16
--- NOTE | 2025-07-20 11:36 | ECG_ITS ---
[facility] Pat Name: Marquis Landrum Department: Room: Gender: Male Saturation Equipment Operator: : 1955 Requested By: Jose Gomez Order Number: [id number] Trevor MD: Narinder Guzman M.D. Measurements Intervals [place] Rate: 73 P: 55 MI: 189 QRS: 30 QRSD: 84 T: 28 QT: 388 QTc: 428 Interpretive Statements SINUS RHYTHM WITH FREQUENT VENTRICULAR PREMATURE COMPLEXES NONSPECIFIC T-WAVE ABNORMALITY ABNORMAL RHYTHM ECG INTERPRETATION BASED ON A DEFAULT AGE OF 40 YEARS Compared to ECG 10/03/2023 10:35:05 Ventricular premature complex(es) now present T-wave abnormality now present SUPRAVENTRICULAR ECTOPIC BEATS NO LONGER PRESENT Electronically Signed On 07-20-2025 21:24:00 CDT by Narinder Guzman M.D. [id number]
--- NOTE | 2025-07-20 11:54 | XR_ITS ---
WS: [id number] Exam: XR chest 1V portable [id number] Date/Time of Exam: 07/20/2025 11:54 AM Reason For Exam: chest pain No priors. Lungs are fully expanded and clear. Normal cardiomediastinal silhouette. Prominent soft tissue density superimposes the cardiac silhouette and is most likely a large hiatal hernia. XR/XR chest 1V portable [id number] IMPRESSION: 1. No acute cardiopulmonary finding. 2. Prominent soft tissue density superimposes the cardiac silhouette which like ly represents a large hiatal hernia.
--- NOTE | 2025-07-20 12:24 | W.ED.CHESTPA ---
HPI - Chest Pain General: Chief Complaint: Chest Pain Stated Complaint: dr stroud, cp, sob, fatigue, R side facial numbness Time Seen by Provider: 07/20/25 11:52 History of Present Illness: 70-year-old male presents emergency room planing of shortness of breath fatigue. he has not felt well for the last several days during the time he has intermittently had facial numbness and some speech difficulty. No fever sweats chills no vomiting or diarrhea he does have hiatal hernia. No specific abdominal pain. He describes the chest discomfort is more of a pressure than real pain. No previous history of coronary artery disease he had a Lexiscan sestamibi stress test earlier this year that was normal. Associated symptoms: Deny abdominal pain, dyspnea or fever(s) Related Data Home Medications ?Medication ?Instructions ?Recorded ?Confirmed acetaminophen 325 mg tablet 325 mg PO QID PRN pain/fever 06/28/20 07/20/25 (Tylenol) sertraline 100 mg tablet 100 mg PO QPM 04/11/22 07/20/25 melatonin 5 mg capsule 5 mg PO QPM PRN Sleep 05/15/22 07/20/25 rivaroxaban 20 mg tablet (Xarelto) 20 mg PO QPM 02/04/24 07/20/25 ferrous sulfate 27 mg iron tablet 27 mg PO QAM 09/27/24 07/20/25 aspirin 81 mg tablet 81 mg PO QPM 04/04/25 07/20/25 isosorbide mononitrate 30 mg 30 mg PO QPM 07/20/25 07/20/25 tablet,extended release 24 hr metformin 500 mg tablet,extended 500 mg PO QPM 07/20/25 07/20/25 release 24 hr omeprazole 40 mg capsule,delayed 40 mg PO BID 07/20/25 07/20/25 release Allergies Allergy/AdvReac Type Severity Reaction Status Date / Time amoxicillin (From Augmentin) Allergy Unknown Verified 07/20/25 11:43 clavulanic acid (From Allergy Unknown Verified 07/20/25 11:43 Augmentin) peanut Allergy Unknown Verified 07/20/25 11:43 Review of Systems Const: Denies: fever(s) or chills Card: Reports: chest pain Resp: Denies: dyspnea GI: Denies: abdominal pain : Denies: dysuria, urinary frequency or urinary urgency Musc: Denies: neck pain or back pain Skin/Breast: Denies: rash PFSH ED PFSH: Medical History Paresthesia Atrial fibrillation H/O cardiac arrhythmia Carotid artery disease TIA (transient ischemic attack) Family History Other CAD (coronary artery disease) Cancer Diabetes Hyperlipidemia Hypertension Lung disease Stroke Denies family history of Chronic kidney disease (CKD) Family history of premature coronary artery disease Social History Smoking and tobacco/nicotine status: former use of tobacco/nicotine Alcohol intake: never Substance/Drug Use: never Physical Exam Const: COMMON NORMALS: no acute distress GENERAL APPEARANCE: cooperative and comfortable ORIENTATION/CONSCIOUSNESS: Yes awake, Yes oriented to person, Yes oriented to place and Yes oriented to time HENMT: COMMON NORMALS: normocephalic, atraumatic and hearing grossly normal bilaterally HEAD & SCALP: normocephalic and atraumatic Resp: COMMON NORMALS: normal respiratory effort, No retractions, No use of accessory muscles and clear to auscultation bilaterally AUSCULTATION: clear to auscultation bilaterally Cardio: COMMON NORMALS: regular rate, regular rhythm and No murmurs present (Cardio) RATE: regular rate RHYTHM: regular rhythm GI: COMMON NORMALS: Soft to palpation and No hepatosplenomegaly present AUSCULTATION: Yes normoactive bowel sounds PALPATION: Yes Soft to palpation, No Tenderness to palpation present (GI), No Guarding due to palpation present (GI) and Yes No hepatosplenomegaly present Extremity: COMMON NORMALS: normal to inspection, capillary refill normal, no clubbing, cyanosis or edema, no calf tenderness and no pedal edema Neuro: SENSORIUM/ORIENTATION: Yes oriented to person, Yes oriented to place and Yes oriented to time OTHER: No focal neurologic deficits were noted Skin: COMMON NORMALS: no rashes or lesions noted GENERAL SKIN EXAM: no rashes or lesions noted Course Vital Signs: Vital signs: Vital Signs Temperature 97.4 F L 07/20/25 11:32 Pulse Rate 68 07/20/25 15:27 Blood Pressure 150/85 07/20/25 15:27 Pulse Oximetry 98 07/20/25 15:27 Oxygen Delivery Me thod Room Air 07/20/25 13:56 MDM - Chest Pain Medical Decision Making Normal neuroexam. No significant findings. Abbreviated stroke exam there is no weakness in the arms or legs no ataxia normal facial symmetry. Cardiac enzymes and EKG do not show any acute changes. Reviewed findings with the patient will discharge home and have him follow-up with him. Continue to take aspirin daily. Continue current medications. Follow-up with primary care within a week or 2 Medical Records I reviewed the patient's medical records. Normal Lexiscan sestamibi stress test to 05/19/2023 Lab Data I reviewed the patient's lab results. 07/20/25 12:20 07/20/25 12:20 Radiology Impressions Chest X-Ray 07/20/25 11:54 IMPRESSION: 1. No acute cardiopulmonary finding. 2. Prominent soft tissue density superimposes the cardiac silhouette which likely represents a large hiatal hernia. Head CT 07/20/25 12:45 IMPRESSION: 1. No evidence of intracranial hemorrhage or mass effect. 2. No acute intracranial findings. Notified Jose Long DO at 07/20/2025 1:51 PM. Laboratory Results WBC 5.60 10^3/uL (3.29-11.43) 07/20/25 12:20 RBC 4.52 10^6/uL (3.85-5.65) 07/20/25 12:20 Hgb 13.20 g/dL (11.27-16.99) 07/20/25 12:20 Hct 41.0 % (37-53) 07/20/25 12:20 MCV 90.7 fl (82-101) 07/20/25 12:20 MCH 29.2 pg (27-33) 07/20/25 12:20 MCHC 32.2 g/dL (30-55) 07/20/25 12:20 RDW 15.2 % (12.1-15.1) H 07/20/25 12:20 Plt Count 235 10^3/cmm (157-399) 07/20/25 12:20 MPV 9.7 fL (7.4-10.4) 07/20/25 12:20 Neut % (Auto) 59.0 % 07/20/25 12:20 Lymph % (Auto) 13.6 % 07/20/25 12:20 Weld % (Auto) 7.1 % 07/20/25 12:20 Eos % (Auto) 18.8 % 07/20/25 12:20 Baso % (Auto) 1.3 % 07/20/25 12:20 Neut # (Auto) 3.31 10^3/uL (1.8-7.7) 07/20/25 12:20 Lymph # (Auto) 0.8 10^3/uL (0.8-4.8) 07/20/25 12:20 Weld # (Auto) 0.4 10^3/uL (0.2-0.9) 07/20/25 12:20 Eos # (Auto) 1.1 10^3/uL (0.0-0.8) H 07/20/25 12:20 Baso # (Auto) 0.1 10^3/uL (0.0-0.1) 07/20/25 12:20 Nucleated RBC % (auto) 0 % 07/20/25 12:20 Nucleated RBCs # 0.0 /100WBC 07/20/25 12:20 Sodium 143 mmol/L (136-145) 07/20/25 12:20 Potassium 4.7 mmol/L (3.5-5.1) 07/20/25 12:20 Chloride 110 mmol/L (98-107) H 07/20/25 12:20 Carbon Dioxide 23 mmol/L (22-29) 07/20/25 12:20 Anion Gap 14.7 (5-19) 07/20/25 12:20 BUN 24 mg/dL (8-23) H 07/20/25 12:20 Creatinine 1.6 mg/dL (0.7-1.2) H 07/20/25 12:20 GFR Calculation Not Reportable 07/20/25 12:20 Glucose 98 mg/dL (65-115) 07/20/25 12:20 Calculated Osmolality 300 mOsm/kg (285-295) H 07/20/25 12:20 Calcium 9.0 mg/dL (8.5-10.5) 07/20/25 12:20 Total Bilirubin 0.3 mg/dL (0.15-1.2) 07/20/25 12:20 AST 9 U/L (0-40) 07/20/25 12:20 ALT 7 U/L (0-41) 07/20/25 12:20 Alkaline Phosphatase 114 U/L (40-130) 07/20/25 12:20 Troponin T Baseline 11 ng/L (0-15) 07/20/25 12:20 Troponin T 120 Minute 10.60 ng/L (0-15) 07/20/25 14:02 Delta Troponin T -0.40 ABS# (0-10) L 07/20/25 14:02 Total Protein 7.5 g/dL (6.6-8.7) 07/20/25 12:20 Albumin 4.3 g/dL (3.5-5.2) 07/20/25 12:20 Globulin 3.2 g/dL (1.3-4.6) 07/20/25 12:20 All radiology interpretation(s) finalized by discharge EKG Data EKG 1: Interpretation: EKG 07/20/2025 11:36 AM sinus rhythm with PVCs. No ST elevation. Rate 73 NJ interval 189 QTc 428. Compared to EKG 10/03/2023 no acute changes EKG 2: Interpretation: EKG 07/20/2025 1315 sinus rhythm with PVCs rate of 63 NJ interval 11/01/[address]Tc [address]. No acute ST elevation or T wave inversion. Compared to EKG done earlier same day no significant change Discharge Plan Discharge Patient Disposition: Home Clinical Impression: Atypical chest pain, Hypertension, Atrial fibrillation, Fatigue Condition: Stable Prescriptions: No Action melatonin 5 mg capsule 5 mg PO QPM PRN (Reason: Sleep) Xarelto 20 mg tablet 20 mg PO QPM Rx Instructions: must administer with evening meal ferrous sulfate 27 mg iron tablet 27 mg PO QAM aspirin 81 mg tablet 81 mg PO QPM acetaminophen [Tylenol] 325 mg Tablet 325 mg PO QID PRN (Reason: pain/fever) sertraline 100 mg tablet 100 mg PO QPM omeprazole 40 mg capsule,delayed release(DR/EC) 40 mg PO BID metformin 500 mg tablet extended release 24 hr 500 mg PO QPM isosorbide mononitrate 30 mg tablet extended release 24 hr 30 mg PO QPM Discharge Orders: Discharge ED (Routine); Ordered 07/20/25 Ordered By: Jose Long Referrals: Ansley Newman NP [Primary Care Provider, Nurse Practitioner] Discharge Diet: Usual diet Discharge Activity: Increase activity as tolerated Patient Instructions: Opioid Safety, Pain Management, Patient Portal & Nelly Instructions Activity Restrictions/Additional Instructions: [facility]. It is very important that you follow up as instructed or that you return to the Emergency Department should you have concerns or if your condition changes or worsens in any way. Emergency department visits are focused on emergent conditions, in some cases you may require further evaluation on an outpatient basis. You were seen in the emergency room complaint shortness of breath and fatigue. There was no sign of stroke on your exam and CT of your head was negative. Your cardiac enzymes and EKG did not show any acute changes. Your blood pressure is mildly elevated. Your kidney function is approximate the same level it typically runs. Your liver functions were normal. There is no emergent condition at this time will discharge home and have you follow-up with your primary care doctor continue to take all of your current medications. (Please note that included in your discharge packet is information concerning opioid safety and pain management. This information is given to all patients were discharged from the ER regardless of their discharge diagnosis or the medicines they usually take or are prescribed.) Print Language: Jordanian Coding Level of Care Code ED [employer] Engineer for Julio Cesar Ramirez
[2025-07-20 12:31] LABS: Hematocrit 41.0 % (37-53); Hemoglobin 13.20 g/dL (11.27-16.99); Mean Corpuscular HGB Conc 32.2 g/dL (30-55); Mean Corpuscular Hemoglobin 29.2 pg (27-33); Mean Corpuscular Volume 90.7 fl (82-101); Nucleated Red Blood Cells % 0 %; Platelet Count 235 10^3/cmm (157-399); Red Blood Count 4.52 10^6/uL (3.85-5.65); White Blood Count 5.60 10^3/uL (3.29-11.43)
[2025-07-20 12:43] LABS: Troponin(5th) Baseline 11 ng/L (0-15)
--- NOTE | 2025-07-20 12:45 | CT_ITS ---
WS: [id number] CT HEAD TECHNIQUE: Noncontrast CT of the head obtained from the skullbase to the vertex. CLINICAL INFORMATION: Right-sided facial numbness COMPARISON: 2019 DLP: 1189.[address] scans at [facility] use at least one of these dose optimization techniques: automated exposure control; mA and/or kV adjustment per patient size (includes targeted exams where dose is matched to clinical indication); or iterative reconstruction. FINDINGS: No evidence of intracranial hemorrhage or mass effect. Ventricular system and basal cisterns are patent. Mild small vessel changes with mild parenchymal volume loss. No extra-axial fluid collections. No evidence of mass or mass effect. Paranasal sinuses and mastoid air cells are well aerated. Trace fluid RIGHT sphenoid sinus.Normal visualized soft tissues. CT/CT head wo con* [id number] IMPRESSION: 1. No evidence of intracranial hemorrhage or mass effect. 2. No acute intracranial findings. Notified Jose Long DO at 07/20/2025 1:51 PM.
[2025-07-20 12:52] LABS: Alanine Aminotransferase 7 U/L (0-41); Albumin Level 4.3 g/dL (3.5-5.2); Alkaline Phosphatase 114 U/L (40-130); Anion Gap 14.7 (5-19); Aspartate Amino Transferase 9 U/L (0-40); Blood Urea Nitrogen 24 mg/dL (8-23); Calcium 9.0 mg/dL (8.5-10.5); Carbon Dioxide 23 mmol/L (22-29); Chloride 110 mmol/L (98-107); Creatinine Clr Calc Pharmacy 45.9238; Globulin 3.2 g/dL (1.3-4.6); Glucose 98 mg/dL (65-115); Osmolality Calculated 300 mOsm/kg (285-295); Potassium 4.7 mmol/L (3.5-5.1); Sodium 143 mmol/L (136-145); Total Protein 7.5 g/dL (6.6-8.7)
--- NOTE | 2025-07-20 13:25 | PC.PHAR ---
Pt states he takes most of his medications at night. Pt takes iron and Omeprazole in the am/
--- NOTE | 2025-07-20 13:54 | ECG_ITS ---
[facility] 2025-07-20 Pat Name: Marquis Landrum Department: Room: Gender: Male Hand [employer]er: : 1955 Requested By: Jose Gomez Order Number: [id number] Trevor MD: Narinder Guzman M.D. Measurements Intervals [place] Rate: 63 P: 54 ME: 193 QRS: 42 QRSD: 87 T: 44 QT: 409 QTc: 420 Interpretive Statements SINUS RHYTHM WITH FREQUENT VENTRICULAR PREMATURE COMPLEXES ABNORMAL RHYTHM ECG Compared to ECG 07/20/2025 11:36:19 No significant changes Electronically Signed On 07-20-2025 21:33:26 CDT by Narinder Guzman M.D. [email or web address]
[2025-07-20 13:56] VITALS: PULSE 65; O2SAT 96
[2025-07-20 14:31] LABS: Troponin 5 2HR 10.60 ng/L (0-15)
[2025-07-20 14:32] LABS: Troponin 5 2HR Delta -0.40 ABS# (0-10)
[2025-07-20 15:27] VITALS: BP 150/85; PULSE 68; O2SAT 98
== END 2025-07-20 15:30 | disposition home or self-care (01) ==
PROVIDERS: Emergency Provider Family Medicine; PCP Nurse Practitioner Family
DX: R07.89 Other chest pain (principal); I10 Essential (primary) hypertension; I48.91 Unspecified atrial fibrillation; R53.83 Other fatigue; Z79.82 Long term (current) use of aspirin; Z79.84 Long term (current) use of oral hypoglycemic drugs; Z87.891 Personal history of nicotine dependence; I25.10 Atherosclerotic heart disease of native coronary artery without angina pectoris; Z86.73 Personal history of transient ischemic attack (TIA), and cerebral infarction without residual deficits
CPT/HCPCS: 36415; 70450; 71045; 80053; 84484; 85025; 93005; 99285; J9999

== ENCOUNTER → 2025-10-10 14:05 | Outpatient (BNVA) | payer MEDICARE, OTHER, SELFPAY | PROVIDERS: PCP Nurse Practitioner Family; Visit Provider Internal Medicine | DX: I48.91 Unspecified atrial fibrillation (principal); Z87.891 Personal history of nicotine dependence; Z79.01 Long term (current) use of anticoagulants; Z79.82 Long term (current) use of aspirin | CPT/HCPCS: 99214 ==